=== PATIENT | female | born 2000 | race Caucasian/White ===

== ENCOUNTER 2023-09-07 09:02 | Outpatient (CLI) | payer OTHER ==
[~2023-09-07 09:02] MED LIST: Iopamidol 370 76% 100 ML VIAL ONE
== END 2023-09-07 09:03 | disposition home or self-care (01) ==
LOC: BICCT 09:02
PROVIDERS: ATTEND Internal Medicine Critical Care Medicine
DX: R91.1 Solitary pulmonary nodule (principal); J90 Pleural effusion, not elsewhere classified; J98.4 Other disorders of lung
CPT/HCPCS: 71260

== ENCOUNTER 2023-09-20 08:50 | Day surgery (SDC) | payer OTHER ==
[2023-09-20 09:32] LABS: #Eosinphils 0.2 thou/uL (0.0-0.7); #Monocytes 0.7 thou/uL (0.11-0.59); #Neutrophils 4.1 thou/uL (1.40-6.50); %Basophils 0.4 % (0.0-1.0); %Eosinophils 2.3 % (0.0-10.0); %Lymphocytes 32.3 % (28.0-48.0); %Monocytes 9.6 % (0.0-4.0); %Neutrophils 55.1 % (31.0-61.0); Hematocrit 42.8 % (36.0-47.0); Mean Corpuscular HGB CONC 32.7 g/dL (32.0-36.0); Mean Corpuscular Hemoglobin 28.6 pg (25.0-35.0); Mean Corpuscular Volume 87.3 fl (78.0-98.0); Platelet Count 295 10x3/uL (130-400); RBC Distribution Width 12.4 % (11.5-14.5); White Blood Cell (WBC) Count 7.4 10x3/uL (4.8-10.8)
[2023-09-20 09:45] LABS: INR-International Normal Ratio 1.1; Prothrombin Time 15.1 sec (12.0-14.7)
[2023-09-20 09:46] LABS: PTT 37.6 sec (22.9-36.1)
[2023-09-20 14:57] VITALS: BP 118/76; TEMP 98
== END 2023-09-20 14:57 | disposition home or self-care (01) ==
LOC: CT 08:50
PROVIDERS: ATTEND Internal Medicine Critical Care Medicine
PROC: 0BBJ3ZX Excision of Left Lower Lung Lobe, Percutaneous Approach, Diagnostic (ICD-10-PCS; principal; 2023-09-20)
DX: R91.1 Solitary pulmonary nodule (principal); J98.4 Other disorders of lung
CPT/HCPCS: 32408; 71045; 77012; 85025; 85610; 85730; 87070; 87102; 87116; 87205; 87206; 87252; 88305; 88312; 88333; 88334; 88341; 88342